=== PATIENT | male | born 1940 | race Caucasian/White ===

== ENCOUNTER → 2016-06-09 | Outpatient (REF) | payer OTHER ==
[~2016-06-09] MED LIST: /TAMS4CA PO; ALEV220C2 PO; ASPI81TA85 PO; CARV25TA PO; CHLO25TA3 PO; CINN500C9 PO; CLOP75TA2 PO; FISH1000 PO; METF500T PO; MULTTAB4 PO; NIASPAN PO; NITR4TASL SL; RAMI10CA PO
[2016-06-09 14:37] LABS: PERCENT SATURATION 17.1 % (19.7-37.4)
== END ==
LOC: M LAB REF 13:25
PROVIDERS: ATTEND Internal Medicine Nephrology
DX: D50.9 Iron deficiency anemia, unspecified (principal)

== ENCOUNTER → 2016-06-21 | Outpatient (CLI) | payer OTHER ==
--- NOTE | 2016-06-21 10:21 | REP ---
Urinary tract sonography: History: Atherosclerosis of the renal artery. Stage III chronic kidney disease. Morphologic findings: Scanning at the level of the urinary bladder shows no abnormality. Renal cortical echogenicity pattern is normal and renal contours are smooth bilaterally. There is some increased renal sinus echogenicity consistent with renal sinus lipomatosis of aging. No mass lesion, cyst, hydronephrosis or calculus is seen on either side. The right kidney measures 12.6 x 6.5 x 5.1 cm. Left renal dimensions are 10.5 x 4.8 x 4.9 cm. Renal artery Doppler flow assessment: Peak systolic flow velocity in the abdominal aorta at the level of the main renal arteries is recorded at 191.7 cm/sec. Peak systolic flow velocity in the left main renal artery is 291.1 cm/sec. The peak systolic flow velocity in the right main renal artery is 238.4 cm/sec. Renal to aortic flow velocity ratios are therefore normal at 1.2 on the right and 1.5 on the left. Resistive indices and acceleration times are measured in the intralobar arteries of the upper, mid and lower pole of each kidney and these values are normal bilaterally. Impression: There is no evidence of hydronephrosis or mass on either side. There is no Doppler evidence to suggest renal artery stenosis. Signed by Johnathan Millan MD 06/21/2016 10:40 A
== END ==
LOC: M RAD 08:17
PROVIDERS: ATTEND Internal Medicine Nephrology
DX: I70.1 Atherosclerosis of renal artery (principal)

== ENCOUNTER → 2016-07-12 | Outpatient (REF) | payer OTHER ==
[2016-07-12 12:44] LABS: MEAN CORPUSCULAR HEMOGLOBIN 30.8 pg (27.0-33.0); MEAN CORPUSCULAR HGB CONC 33.5 g/dl (32.0-36.5); MEAN CORPUSCULAR VOLUME 92.1 fl (80.0-96.0); RED CELL DISTRIBUTION WIDTH 12.7 % (11.5-14.5)
[2016-07-12 13:06] LABS: ALBUMIN 3.6 GM/DL (3.2-5.2); ALBUMIN/GLOBULIN RATIO 0.97 (1.00-1.93); BILIRUBIN,TOTAL 0.2 MG/DL (0.2-1.0); CALCIUM LEVEL 8.7 MG/DL (8.8-10.2); CREATININE FOR GFR 1.62 MG/DL (0.70-1.30); FREE T4 1.02 NG/DL (0.76-1.46); GLOMERULAR FILTRATION RATE 44.3 (>42); POTASSIUM SERUM 4.1 MEQ/L (3.5-5.1); TOTAL PROTEIN 7.3 GM/DL (6.4-8.2)
== END ==
LOC: M SFHCADAM 09:11
PROVIDERS: ATTEND Family Medicine
DX: E11.40 Type 2 diabetes mellitus with diabetic neuropathy, unspecified (principal); G89.29 Other chronic pain

== ENCOUNTER → 2016-10-09 | Outpatient (CLI) | payer OTHER ==
--- NOTE | 2016-10-09 14:04 | REP ---
Clinical: Right groin pain. Technique: Real time bustillo scale ultrasound examination using linear high frequency transducer. Findings: Directed ultrasound examination of the right groin (with left groin for comparison) appears normal and without evidence for inguinal hernia, fluid collection or mass lesion. Impression: Normal ultrasound. No hernia. Signed by Fei Campos MD 10/09/2016 01:55 P
== END ==
LOC: M RAD 13:27
PROVIDERS: ATTEND Physician Assistant
DX: R10.31 Right lower quadrant pain (principal)

== ENCOUNTER → 2016-10-11 | Outpatient (CLI) | payer OTHER ==
--- NOTE | 2016-10-11 09:43 | REP ---
Clinical: Right groin pain. Technique: Neutral and frog lateral views of the right hip. Findings: Age-related degenerative changes include increased sclerosis to the acetabular roof with marginal spurring and joint space narrowing. There is no evidence for acute fracture or dislocation. Postsurgical changes include iliac stent as well as right lower lobe and groin issa. Surrounding soft tissues are grossly unremarkable. Impression: Age-related degenerative changes to the right hip. No obvious acute fracture or dislocation. Signed by Fei Campos MD 10/11/2016 09:34 A
== END ==
LOC: M ADAMS 09:06
PROVIDERS: ATTEND Family Medicine
DX: M16.11 Unilateral primary osteoarthritis, right hip (principal)

== ENCOUNTER → 2016-11-15 | Outpatient (CLI) | payer OTHER ==
[2016-11-15 19:26] LABS: CREATININE FOR GFR 1.99 MG/DL (0.70-1.30); GLOMERULAR FILTRATION RATE 34.9 (>42)
== END ==
LOC: M ADAMS 16:49
PROVIDERS: ATTEND Physician Assistant
DX: I70.512 Atherosclerosis of nonautologous biological bypass graft(s) of the extremities with intermittent claudication, left leg (principal)

== ENCOUNTER → 2016-12-11 | Outpatient (REF) | payer OTHER ==
[2016-12-11 13:19] LABS: BASO % 0.5 % (0.0-1.0); EOS # 0.3 K/mm3 (0.0-0.50); EOS % 4.8 % (0.0-3.0); LARGE UNSTAINED CELL # 0.1 K/mm3 (0.0-0.4); LARGE UNSTAINED CELL % 2.6 % (0.0-4.0); LYMPH # 1.1 K/mm3 (1.5-4.5); LYMPH % 17.6 % (24.0-44.0); MEAN CORPUSCULAR HEMOGLOBIN 32.2 pg (27.0-33.0); MEAN CORPUSCULAR HGB CONC 33.5 g/dl (32.0-36.5); MEAN CORPUSCULAR VOLUME 96.3 fl (80.0-96.0); MONO # 0.5 K/mm3 (0.0-0.8); MONO % 9.4 % (0.0-5.0); NEUTROPHILS # 3.5 K/mm3 (1.8-7.7); PLATELET COUNT, AUTOMATED 187 k/mm3 (150-450); RED CELL DISTRIBUTION WIDTH 13.1 % (11.5-14.5); WHITE BLOOD COUNT 5.4 K/mm3 (4.0-10.0)
[2016-12-11 13:23] LABS: INR 0.97
[2016-12-11 13:46] LABS: CALCIUM LEVEL 8.9 MG/DL (8.8-10.2); CREATININE FOR GFR 1.82 MG/DL (0.70-1.30); GLOMERULAR FILTRATION RATE 38.6 (>42); POTASSIUM SERUM 4.3 MEQ/L (3.5-5.1)
== END ==
LOC: M LABDRWAD 12:28
PROVIDERS: ATTEND Surgery Vascular Surgery
DX: Z01.818 Encounter for other preprocedural examination (principal); I70.213 Atherosclerosis of native arteries of extremities with intermittent claudication, bilateral legs; D69.8 Other specified hemorrhagic conditions

== ENCOUNTER → 2017-03-13 | Outpatient (REF) | payer OTHER ==
[2017-03-13 20:49] LABS: MEAN CORPUSCULAR HEMOGLOBIN 31.5 pg (27.0-33.0); MEAN CORPUSCULAR VOLUME 95.5 fl (80.0-96.0); PLATELET COUNT, AUTOMATED 197 10^3/uL (150-450); RED CELL DISTRIBUTION WIDTH 12.8 % (11.5-14.5); WHITE BLOOD COUNT 6.3 10^3/uL (4.0-10.0)
[2017-03-13 20:54] LABS: ALBUMIN 3.8 GM/DL (3.2-5.2); ALBUMIN/GLOBULIN RATIO 1.06 (1.00-1.93); BILIRUBIN,TOTAL 0.3 MG/DL (0.2-1.0); CREATININE FOR GFR 1.87 MG/DL (0.70-1.30); FREE T4 0.84 NG/DL (0.76-1.46); GLOMERULAR FILTRATION RATE 37.5 (>42); POTASSIUM SERUM 4.6 MEQ/L (3.5-5.1); TOTAL PROTEIN 7.4 GM/DL (6.4-8.2)
== END ==
LOC: M SFHCADAM 14:11
PROVIDERS: ATTEND Physician Assistant
DX: E11.22 Type 2 diabetes mellitus with diabetic chronic kidney disease (principal); E11.40 Type 2 diabetes mellitus with diabetic neuropathy, unspecified; E03.9 Hypothyroidism, unspecified

== ENCOUNTER → 2017-03-19 | Outpatient (REF) | payer OTHER ==
[2017-03-19 14:04] LABS: PERCENT SATURATION 27.3 % (19.7-50.0)
== END ==
LOC: M LAB REF 12:59
PROVIDERS: ATTEND Internal Medicine Nephrology
DX: D50.9 Iron deficiency anemia, unspecified (principal)

== ENCOUNTER → 2017-06-14 | Outpatient (REF) | payer OTHER ==
[2017-06-14 20:51] LABS: BASO % 0.5 % (0.0-1.0); EOS # 0.2 10^3/uL (0.0-0.50); EOS % 2.1 % (0.0-3.0); HEMATOCRIT 31.7 % (42.0-52.0); HEMOGLOBIN 10.4 g/dl (14.0-18.0); IMMATURE GRANULOCYTE % 0.2 % (0-0); LYMPH # 1.4 10^3/uL (1.5-4.5); LYMPH % 16.8 % (24.0-44.0); MEAN CORPUSCULAR HGB CONC 32.8 g/dl (32.0-36.5); MEAN CORPUSCULAR VOLUME 94.3 fl (80.0-96.0); MONO % 12.1 % (0.0-5.0); NEUTROPHILS # 5.5 10^3/uL (1.8-7.7); NEUTROPHILS % 68.3 % (36.0-66.0); PLATELET COUNT, AUTOMATED 244 10^3/uL (150-450); RED BLOOD COUNT 3.36 10^6/uL (4.30-6.10); RED CELL DISTRIBUTION WIDTH 12.5 % (11.5-14.5)
[2017-06-14 21:02] LABS: APPEARANCE, URINE CLEAR (CLEAR); BACTERIA, URINE AUTO NEGATIVE (NEGATIVE); BILIRUBIN, URINE AUTO NEGATIVE (NEGATIVE); BLOOD, URINE BLOOD NEGATIVE (NEGATIVE); COLOR, URINE YELLOW (YELLOW); GLUCOSE, URINE (UA) AUTO NEGATIVE (NEGATIVE); KETONE, URINE AUTO NEGATIVE (NEGATIVE); LEUKOCYTE ESTERASE, URINE AUTO 1+ (NEGATIVE); NITRITE, URINE AUTO NEGATIVE (NEGATIVE); PROTEIN, URINE AUTO 1+ mg/dL (NEGATIVE); RBC, URINE AUTO 0 /HPF (0-3); SPECIFIC GRAVITY URINE AUTO 1.009 (1.002-1.035); SQUAMOUS EPITHELIAL CELL UR AU 0 /HPF (0-6); UROBILINOGEN, URINE AUTO 0.2 mg/dL (0.0-2.0); WBC, URINE AUTO 7 /HPF (0-3)
[2017-06-14 21:22] LABS: ALBUMIN 4.1 GM/DL (3.2-5.2); ALBUMIN/GLOBULIN RATIO 1.21 (1.00-1.93); ALKALINE PHOSPHATASE 100 U/L (45-117); ALT/SGPT 22 U/L (12-78); ANION GAP 6 MEQ/L (8-16); AST/SGOT 23 U/L (7-37); BILIRUBIN,TOTAL 0.2 MG/DL (0.2-1.0); BLOOD UREA NITROGEN 31 MG/DL (7-18); CALCIUM LEVEL 8.6 MG/DL (8.8-10.2); CARBON DIOXIDE LEVEL 28 MEQ/L (21-32); CHLORIDE LEVEL 101 MEQ/L (98-107); CREATININE FOR GFR 1.72 MG/DL (0.70-1.30); FREE T4 0.88 NG/DL (0.76-1.46); GLOMERULAR FILTRATION RATE 41.3 (>42); GLUCOSE, FASTING 122 MG/DL (70-100); POTASSIUM SERUM 4.8 MEQ/L (3.5-5.1); PSA SCREENING 0.56 NG/ML (< 4.0); SODIUM LEVEL 135 MEQ/L (136-145); TOTAL PROTEIN 7.5 GM/DL (6.4-8.2)
== END ==
LOC: M SFHCADAM 14:19
DX: N40.1 Benign prostatic hyperplasia with lower urinary tract symptoms (principal); K59.00 Constipation, unspecified; R30.0 Dysuria; E11.22 Type 2 diabetes mellitus with diabetic chronic kidney disease
CPT/HCPCS: 84443

== ENCOUNTER 2017-08-11 12:41 | Emergency (ER) | payer OTHER ==
[2017-08-11 13:18] LABS: HEMATOCRIT 27.4 % (42.0-52.0); HEMOGLOBIN 9.3 g/dl (14.0-18.0); MEAN CORPUSCULAR HGB CONC 33.9 g/dl (32.0-36.5); MEAN CORPUSCULAR VOLUME 91.3 fl (80.0-96.0); PLATELET COUNT, AUTOMATED 190 10^3/uL (150-450); RED CELL DISTRIBUTION WIDTH 12.4 % (11.5-14.5); WHITE BLOOD COUNT 13.5 10^3/uL (4.0-10.0)
[2017-08-11 13:23] LABS: ADD MANUAL DIFFER YES; DIFF SLIDE NUMBER 135; POSITIVE DIFF POS FLAG; POSITIVE MORPH POS FLAG
[2017-08-11 13:29] LABS: INR 1.09; PROTHROMBIN TIME 14.2 SECONDS (12.4-14.5)
[2017-08-11 13:30] LABS: PARTIAL THROMBOPLASTIN TIME 28.9 SECONDS (26.8-37.9)
[2017-08-11 13:40] LABS: ALBUMIN 3.5 GM/DL (3.2-5.2); ALBUMIN/GLOBULIN RATIO 0.88 (1.00-1.93); ALKALINE PHOSPHATASE 91 U/L (45-117); ALT/SGPT 22 U/L (12-78); ANION GAP 12 MEQ/L (8-16); AST/SGOT 20 U/L (7-37); BILIRUBIN,DIRECT < 0.1 MG/DL (0.0-0.2); BILIRUBIN,TOTAL 0.2 MG/DL (0.2-1.0); BLOOD UREA NITROGEN 40 MG/DL (7-18); CALCIUM LEVEL 8.6 MG/DL (8.8-10.2); CARBON DIOXIDE LEVEL 23 MEQ/L (21-32); CHLORIDE LEVEL 102 MEQ/L (98-107); CPK CREATINE PHOSPHOKINASE 413 U/L (39-308); CREATININE FOR GFR 1.82 MG/DL (0.70-1.30); GLOMERULAR FILTRATION RATE 38.5 (>42); GLUCOSE, FASTING 203 MG/DL (70-100); LIPASE 108 U/L (73-393); POTASSIUM SERUM 4.2 MEQ/L (3.5-5.1); SODIUM LEVEL 137 MEQ/L (136-145); TOTAL PROTEIN 7.5 GM/DL (6.4-8.2); TROPONIN I 0.06 NG/ML (< 0.10)
[2017-08-11 13:41] LABS: CK-MB VALUE MASS 7.9 NG/ML (<3.6); MB/CK RELATIVE INDEX 1.91 (< OR =4)
[2017-08-11 13:50] LABS: LYMPHOCYTES 8 % (16-52); MONOCYTES 2 % (0-8); NEUTROPHILS 90 % (35-75)
[2017-08-11] MEDS: NITROGLYCERIN 0.4 MG SUBL TABLET SL (13:50)
[2017-08-11 13:51] LABS: ANISOCYTOSIS 1+; PLATELET ESTIMATE NORMAL (NORMAL)
[2017-08-11] MEDS: NITROGLYCERIN 2% OINT 1 GM *U/D* PKT TOP (14:19)
[2017-08-11] MEDS: METOPROLOL 5 MG/5 ML VIAL IV (16:42)
[2017-08-11] MEDS: CLOPIDOGREL 300 MG TAB (PLAVIX) PO (16:42)
[2017-08-11] MEDS: HEPARIN DRIP 25,000 UNITS in APPROPRIATE DILUENT 1 EA IV (16:45)
[2017-08-11] MEDS: HEPARIN SOD (PORCINE) 5000 UNITS/ML VIAL IV (16:46)
== END 2017-08-11 17:01 | disposition short-term general hospital (02) ==
LOC: M ED 12:41
DX: I24.9 Acute ischemic heart disease, unspecified (principal); R94.31 Abnormal electrocardiogram [ECG] [EKG]; R91.8 Other nonspecific abnormal finding of lung field; N18.9 Chronic kidney disease, unspecified; I12.9 Hypertensive chronic kidney disease with stage 1 through stage 4 chronic kidney disease, or unspecified chronic kidney disease; I25.10 Atherosclerotic heart disease of native coronary artery without angina pectoris; E11.51 Type 2 diabetes mellitus with diabetic peripheral angiopathy without gangrene; E78.5 Hyperlipidemia, unspecified; I25.2 Old myocardial infarction; M10.9 Gout, unspecified; I73.9 Peripheral vascular disease, unspecified; Z79.01 Long term (current) use of anticoagulants; Z79.82 Long term (current) use of aspirin; Z79.899 Other long term (current) drug therapy; Z88.5 Allergy status to narcotic agent; Z82.49 Family history of ischemic heart disease and other diseases of the circulatory system; Z87.891 Personal history of nicotine dependence; Z98.890 Other specified postprocedural states; Z95.5 Presence of coronary angioplasty implant and graft
CPT/HCPCS: 71046

== ENCOUNTER → 2017-09-07 | Outpatient (REF) | payer OTHER ==
[2017-09-07 17:52] LABS: FERRITIN 125 NG/ML (26-388); IRON (FE) 41 UG/DL (65-175); PERCENT SATURATION 18.7 % (19.7-50.0); TOTAL IRON BINDING CAPACITY 219 UG/DL (250-450)
== END ==
LOC: M LAB REF 17:02
DX: E11.22 Type 2 diabetes mellitus with diabetic chronic kidney disease (principal)
CPT/HCPCS: 83550

== ENCOUNTER → 2017-12-25 | Outpatient (REF) | payer OTHER ==
[2017-12-25 13:15] LABS: FERRITIN 139 NG/ML (26-388); IRON (FE) 63 UG/DL (65-175); TOTAL IRON BINDING CAPACITY 252 UG/DL (250-450)
== END ==
LOC: M LAB REF 12:23
DX: E11.22 Type 2 diabetes mellitus with diabetic chronic kidney disease (principal)
CPT/HCPCS: 83550

== ENCOUNTER → 2018-01-11 | Outpatient (REF) | payer OTHER ==
[2018-01-11 16:13] LABS: BASO % 0.5 % (0.0-1.0); EOS # 0.1 10^3/uL (0.0-0.50); EOS % 1.9 % (0.0-3.0); HEMATOCRIT 27.8 % (42.0-52.0); HEMOGLOBIN 9.3 g/dl (13.5-17.5); IMMATURE GRANULOCYTE % 0.3 % (0-3.0); LYMPH # 1.2 10^3/uL (1.5-4.5); LYMPH % 19.2 % (24.0-44.0); MEAN CORPUSCULAR HEMOGLOBIN 31.2 pg (27.0-33.0); MEAN CORPUSCULAR HGB CONC 33.5 g/dl (32.0-36.5); MEAN CORPUSCULAR VOLUME 93.3 fl (80.0-96.0); MONO # 0.9 10^3/uL (0.0-0.8); MONO % 13.3 % (0.0-5.0); NEUTROPHILS # 4.2 10^3/uL (1.8-7.7); NEUTROPHILS % 64.8 % (36.0-66.0); PLATELET COUNT, AUTOMATED 169 10^3/uL (150-450); RED BLOOD COUNT 2.98 10^6/uL (4.30-6.10); RED CELL DISTRIBUTION WIDTH 13.9 % (11.5-14.5); WHITE BLOOD COUNT 6.5 10^3/uL (4.0-10.0)
[2018-01-11 16:20] LABS: ALBUMIN 3.5 GM/DL (3.2-5.2); ALBUMIN/GLOBULIN RATIO 1.09 (1.00-1.93); ALKALINE PHOSPHATASE 98 U/L (45-117); ALT/SGPT 25 U/L (12-78); ANION GAP 9 MEQ/L (8-16); AST/SGOT 22 U/L (7-37); BILIRUBIN,TOTAL 0.2 MG/DL (0.2-1.0); BLOOD UREA NITROGEN 32 MG/DL (7-18); CALCIUM LEVEL 8.5 MG/DL (8.8-10.2); CARBON DIOXIDE LEVEL 25 MEQ/L (21-32); CHLORIDE LEVEL 108 MEQ/L (98-107); CREATININE FOR GFR 1.82 MG/DL (0.70-1.30); GLOMERULAR FILTRATION RATE 38.5 (>42); GLUCOSE, FASTING 216 MG/DL (70-100); POTASSIUM SERUM 3.9 MEQ/L (3.5-5.1); SODIUM LEVEL 142 MEQ/L (136-145); TOTAL PROTEIN 6.7 GM/DL (6.4-8.2)
== END ==
LOC: M SFHCADAM 13:51
DX: Z01.818 Encounter for other preprocedural examination (principal); H25.12 Age-related nuclear cataract, left eye
CPT/HCPCS: 80053

== ENCOUNTER 2018-02-05 07:08 | Day surgery (SDC) | payer OTHER ==
[2018-02-05] MEDS: CEFUROXIME 1MG/0.1ML INTRACAMERAL INJ As Ordered (06:34)
[~2018-02-05 07:08] MED LIST changes: -/TAMS4CA PO; +ACETAMINOPHEN 325 MG TAB PO; +ACETYLCHOLINE OPHTH SOLN 1% 2ML (MIOCHOL-E) As Ordered; -ALEV220C2 PO; -ASPI81TA85 PO; -CARV25TA PO; -CHLO25TA3 PO; -CINN500C9 PO; -CLOP75TA2 PO; -FISH1000 PO; -METF500T PO; -MULTTAB4 PO; -NIASPAN PO; -NITR4TASL SL; +PHENYLEPHRINE HCL 10 % OPHTH. SOL 5ML OD; -RAMI10CA PO
[2018-02-05] MEDS: PHENYLEPHRINE 2.5% OPHTH SOL 2ML OD (07:49)
[2018-02-05] MEDS: CYCLOPENTOLATE 2% OPHTH SOLN 2ML BTL OD (07:49)
[2018-02-05] MEDS: TROPICAMIDE 1% OPHTH SOLN 2ML OD (07:49)
[2018-02-05] MEDS: OFLOXACIN 0.3 % (OCUFLOX) OPTH SOL 5ML OD (07:50)
[2018-02-05] MEDS: LIDOCAINE 3.5 % 1ML OPHTH TOPICAL GEL OU (07:50)
[2018-02-05 07:51] LABS: BEDSIDE GLUCOSE 157 MG/DL (83-110)
[2018-02-05] MEDS ORDERED: MIDAZOLAM INJ 2 MG/2 ML VIAL (J2250) As Ordered (08:39)
[2018-02-05] MEDS: POVIDONE-IODINE 5% OPHTH PREP SOL 30ML As Ordered (09:15)
[2018-02-05] MEDS: LIDOCAINE 1% SDV 5 ML VIAL As Ordered (09:19)
[2018-02-05] MEDS: HEALON DUET (HEALON 10MG/ML 0.55ML & HEALON ENDOCOAT 30MG/ML 0.85ML) As Ordered (09:23)
[2018-02-05] MEDS: TRIAMCINOLONE PRES FR 40 MG/ML 1ML(TRIESENCE)(OR EYE ONLY)(J3300 PER 1MG) As Ordered (09:24)
[2018-02-05] MEDS: MOXIFLOXACIN IN BSS 0.25MG/0.25ML INTRACAMERAL INJ (OR EYE ONLY)(J2280) As Ordered (09:24)
[2018-02-05] MEDS: BSS with VANC/TOB/EPI for EYE CASES IR (09:25)
[2018-02-05] MEDS ORDERED: TRIMETHOBENZAMIDE 300 MG CAP PO (10:00)
[2018-02-05] MEDS: AcetaZOLAMIDE 500 MG ER CAP PO (10:03)
== END 2018-02-05 10:12 | disposition home or self-care (01) ==
LOC: M SDC 07:08
DX: H25.9 Unspecified age-related cataract (principal); I25.10 Atherosclerotic heart disease of native coronary artery without angina pectoris; I10 Essential (primary) hypertension; E11.9 Type 2 diabetes mellitus without complications; Z79.82 Long term (current) use of aspirin; Z79.02 Long term (current) use of antithrombotics/antiplatelets; I25.2 Old myocardial infarction; E78.5 Hyperlipidemia, unspecified; M10.9 Gout, unspecified; Z87.891 Personal history of nicotine dependence; N40.0 Benign prostatic hyperplasia without lower urinary tract symptoms; G47.30 Sleep apnea, unspecified
CPT/HCPCS: 66984

== ENCOUNTER → 2018-03-15 | Outpatient (REF) | payer OTHER ==
[2018-03-15 12:25] LABS: ESTIMATED AVERAGE GLUCOSE 151 MG/DL (60-110); HEMOGLOBIN A1c 6.9 %
== END ==
LOC: M SFHCADAM 08:53
DX: E11.40 Type 2 diabetes mellitus with diabetic neuropathy, unspecified (principal)
CPT/HCPCS: 83036

== ENCOUNTER → 2018-04-02 | Outpatient (REF) | payer OTHER ==
[2018-04-02 14:27] LABS: FERRITIN 166 NG/ML (26-388); IRON (FE) 75 UG/DL (65-175); PERCENT SATURATION 32.6 % (19.7-50.0); TOTAL IRON BINDING CAPACITY 230 UG/DL (250-450)
== END ==
LOC: M LAB REF 13:24
DX: E11.22 Type 2 diabetes mellitus with diabetic chronic kidney disease (principal); N18.9 Chronic kidney disease, unspecified
CPT/HCPCS: 83550

== ENCOUNTER → 2018-05-06 | Outpatient (REF) | payer OTHER ==
[~2018-05-06] MED LIST changes: +/TAMS4CA PO; -ACETAMINOPHEN 325 MG TAB PO; -ACETYLCHOLINE OPHTH SOLN 1% 2ML (MIOCHOL-E) As Ordered; +ALEV220C2 PO; +AMLO25TA PO; +ASPI81TA85 PO; +ATOR40TA75 PO; +CARV25TA PO; +CHLO25TA PO; +CHLO25TA3 PO; +CINN500C9 PO; +CLOP75TA2 PO; +DOCU100T8 PO; +FERR325T3 PO; +FISH1000 PO; +FLOM0.4C39 PO; +GABA-845 PO; +K-TA10TA2 PO; +LASI20TA PO; +METF500T PO; +MULTCAP PO; +MULTTAB4 PO; +NIASPAN PO; +NITR0.4S14 SL; +NITR4TASL SL; +OXYC1TAB23 PO; -PHENYLEPHRINE HCL 10 % OPHTH. SOL 5ML OD; +PROC1INJ5 INJ; +RAMI10CA PO; +RAMI1CAP22 PO; +RAPA8CAP PO; +TRAD5TAB PO
[2018-05-06 12:47] LABS: HEMATOCRIT 27.7 % (42.0-52.0); HEMOGLOBIN 9.3 g/dl (13.5-17.5); MEAN CORPUSCULAR HEMOGLOBIN 31.2 pg (27.0-33.0); MEAN CORPUSCULAR HGB CONC 33.6 g/dl (32.0-36.5); PLATELET COUNT, AUTOMATED 191 10^3/uL (150-450); RED BLOOD COUNT 2.98 10^6/uL (4.30-6.10); WHITE BLOOD COUNT 6.8 10^3/uL (4.0-10.0)
[2018-05-06 13:23] LABS: ALBUMIN 3.5 GM/DL (3.2-5.2); BILIRUBIN,DIRECT 0.1 MG/DL (0.0-0.2); BILIRUBIN,TOTAL 0.3 MG/DL (0.2-1.0); CHOLESTEROL RISK RATIO 4.155 (<5); TOTAL PROTEIN 6.6 GM/DL (6.4-8.2)
== END ==
LOC: M LABDRWAD 12:22
PROVIDERS: ATTEND Physician Assistant
DX: I25.10 Atherosclerotic heart disease of native coronary artery without angina pectoris (principal); E78.00 Pure hypercholesterolemia, unspecified

== ENCOUNTER → 2018-08-15 | Outpatient (REF) | payer OTHER ==
[~2018-08-15] MED LIST changes: -LASI20TA PO; +LASI20TA3 PO
[2018-08-15 19:46] LABS: CREATININE FOR GFR 1.63 MG/DL (0.70-1.30); GLOMERULAR FILTRATION RATE 43.7 (>42)
== END ==
LOC: M LABDRWAD 19:08
PROVIDERS: ATTEND Surgery Vascular Surgery
DX: I65.23 Occlusion and stenosis of bilateral carotid arteries (principal)

== ENCOUNTER → 2018-09-11 | Outpatient (REF) | payer MEDICARE ==
[~2018-09-11] MED LIST changes: -/TAMS4CA PO; +HEMP PO; -RAPA8CAP PO; +RAPA8CAP4 PO
[2018-09-11 13:45] LABS: CALCIUM LEVEL 8.7 MG/DL (8.8-10.2); CREATININE FOR GFR 1.59 MG/DL (0.70-1.30); GLOMERULAR FILTRATION RATE 44.9 (>42)
[2018-09-11 13:47] LABS: BASO % 0.4 % (0.0-1.0); EOS # 0.2 10^3/uL (0.0-0.50); EOS % 2.2 % (0.0-3.0); HEMATOCRIT 29.3 % (42.0-52.0); HEMOGLOBIN 9.6 g/dl (13.5-17.5); LYMPH # 1.3 10^3/uL (1.5-4.5); LYMPH % 18.5 % (24.0-44.0); MEAN CORPUSCULAR HEMOGLOBIN 30.5 pg (27.0-33.0); MEAN CORPUSCULAR HGB CONC 32.8 g/dl (32.0-36.5); MONO # 1.1 10^3/uL (0.0-0.8); MONO % 16.3 % (0.0-5.0); NEUTROPHILS # 4.3 10^3/uL (1.8-7.7); NEUTROPHILS % 62.2 % (36.0-66.0); PLATELET COUNT, AUTOMATED 203 10^3/uL (150-450); RED BLOOD COUNT 3.15 10^6/uL (4.30-6.10); WHITE BLOOD COUNT 6.9 10^3/uL (4.0-10.0)
[2018-09-11 14:16] LABS: PARTIAL THROMBOPLASTIN TIME 31.5 SECONDS (25.4-37.6)
[2018-09-11 14:24] LABS: INR 1.02; PROTHROMBIN TIME 13.5 SECONDS (12.1-14.4)
== END ==
LOC: M LABDRWAD 12:25
PROVIDERS: ATTEND Surgery Vascular Surgery
DX: I70.213 Atherosclerosis of native arteries of extremities with intermittent claudication, bilateral legs (principal); D69.8 Other specified hemorrhagic conditions; Z01.818 Encounter for other preprocedural examination

== ENCOUNTER → 2018-11-06 | Outpatient (REF) | payer MEDICARE ==
[2018-11-06 13:12] LABS: ALBUMIN 3.3 GM/DL (3.2-5.2); ALT/SGPT 30 U/L (12-78); BILIRUBIN,DIRECT < 0.1 MG/DL (0.0-0.2); BILIRUBIN,TOTAL 0.3 MG/DL (0.2-1.0); CHOLESTEROL LEVEL 132 MG/DL (<200); CHOLESTEROL RISK RATIO 3.567 (<5); HDL CHOLESTEROL 37 MG/DL (>40); LDL CHOLESTEROL 65 MG/DL (<100); NON-HDL-C 95 MG/DL; TOTAL PROTEIN 6.4 GM/DL (6.4-8.2); TRIGLYCERIDES LEVEL 148 MG/DL (<150)
== END ==
LOC: M LABDRWAD 12:19
PROVIDERS: ATTEND Physician Assistant
DX: E78.00 Pure hypercholesterolemia, unspecified (principal); I25.10 Atherosclerotic heart disease of native coronary artery without angina pectoris

== ENCOUNTER → 2019-01-30 | Outpatient (CLI) | payer MEDICARE ==
--- NOTE | 2019-01-30 14:37 | REP ---
MRI of the lumbar spine without contrast Indication: Other intervertebral disc degeneration, lumbar region. Comparison: None Technique: MRI of the lumbar spine was performed utilizing sagittal STIR, T1 and T2, and axial T1 and T2 weighted imaging. No intravenous contrast was administered. Findings: There is one - 2 mm retrolisthesis L3 on L4 and L4 on L5. There is multilevel degenerative changes within the lumbar spine including loss of disc height and endplate irregularity. There is compression deformity along the superior endplate of L5 posteriorly without significant loss of height. There is focal marrow edema along the superior endplates of L2, L3 and L5, likely related to Schmorl's node deformities. There are fatty marrow degenerative changes at L3-L4. Remaining vertebral body heights are maintained. The visualized spinal cord is normal. The conus medullaris terminates at the level of L1. Note is made of all large bridging anterior osteophytes. Note is made of a left-sided synovial cyst within the paraspinal soft tissues at L5-S1. Level specific observations: L1-L2: Diffuse disc bulge, eccentric to the left. L2-L3: Diffuse disc bulge. L3-L4: Diffuse disc bulge with superimposed central disc protrusion. Bilateral facet arthropathy. Ligamentum flavum thickening. Moderate narrowing of the spinal canal. Moderate left and mild right neural foraminal narrowing. L4-L5: Diffuse disc osteophyte complex with superimposed left paracentral disc protrusion. Advanced bilateral facet hypertrophy. Ligamentum flavum thickening. Severe narrowing of the spinal canal. Moderate bilateral neural foraminal narrowing. L5-S1: Bilateral facet arthropathy, severe on the left. T2 hyperintensity within the left paraspinal soft tissues adjacent to the joint consistent with synovial cyst. Moderate bilateral neural foraminal narrowing. Impression: One - 2 mm retrolisthesis of L3 on L4 and L4 on L5. Multilevel lumbar spondylosis with severe spinal canal stenosis at L4-L5 and moderate canal stenosis at L3-L4. Additionally, there is moderate bilateral neural foraminal narrowing at L3-L4, L4-L5, and L5-S1. Electronically Signed by Pierre Chen MD 01/30/2019 02:28 P
== END ==
LOC: M RAD 12:08
PROVIDERS: ATTEND Physician Assistant
DX: M51.26 Other intervertebral disc displacement, lumbar region (principal); M47.816 Spondylosis without myelopathy or radiculopathy, lumbar region; M48.061 Spinal stenosis, lumbar region without neurogenic claudication

== ENCOUNTER → 2019-02-11 | Outpatient (REF) | payer MEDICARE ==
[2019-02-11 19:22] LABS: ALBUMIN 3.6 GM/DL (3.2-5.2); BILIRUBIN,TOTAL 0.3 MG/DL (0.2-1.0); CALCIUM LEVEL 8.8 MG/DL (8.8-10.2); CREATININE FOR GFR 1.63 MG/DL (0.70-1.30); FREE T4 0.97 NG/DL (0.76-1.46); GLOMERULAR FILTRATION RATE 43.7 (>42); POTASSIUM SERUM 4.5 MEQ/L (3.5-5.1); THYROID STIMULATING HORMONE 3.15 uIU/ML (0.358-3.740); TOTAL PROTEIN 6.7 GM/DL (6.4-8.2)
[2019-02-11 19:24] LABS: HEMOGLOBIN A1c 6.2 %
== END ==
LOC: M SFHCADAM 13:48
PROVIDERS: ATTEND Physician Assistant
DX: E03.9 Hypothyroidism, unspecified (principal); E11.40 Type 2 diabetes mellitus with diabetic neuropathy, unspecified; N64.4 Mastodynia
CPT/HCPCS: 80053; 83036; 84439; 84443; G0463

== ENCOUNTER → 2019-02-18 | Outpatient (CLI) | payer MEDICARE ==
--- NOTE | 2019-02-18 12:04 | REP ---
BILATERAL MAMMOGRAM: HISTORY: Pain left nipple. MLO and CC views of both breasts performed. There is ill-defined fibroglandular tissue in the retroareolar regions bilaterally, left greater than right. There is no mass or architectural distortion. No clustered microcalcifications are seen. IMPRESSION: ACR 2 Benign. Findings consistent with bilateral gynecomastia left greater than right. No suspicious mass or clustered microcalcifications. Clinical correlation and followup recommended. This mammogram was interpreted with the aid of an FDA-approved computer-aided detection system. The patient states he/she had a clinical breast exam in 01/2019. The patient letter being requested is M2. Electronically Signed by Clement De Guzman MD 02/19/2019 04:08 P
== END ==
LOC: M RAD 10:25
PROVIDERS: ATTEND Physician Assistant
DX: N64.4 Mastodynia (principal); N62 Hypertrophy of breast

== ENCOUNTER 2019-05-17 20:37 | Emergency (ER) | payer MEDICARE ==
[~2019-05-17] VITALS: Ht 165.1 cm; Wt 89.2 kg
[2019-05-17] MEDS ORDERED: FURO20TA2 PO (21:04)
[2019-05-17 21:08] LABS: BASO % 0.3 % (0.0-1.0); EOS # 0.1 10^3/uL (0.0-0.5); EOS % 1.4 % (0.0-3.0); HEMATOCRIT 27.7 % (42.0-52.0); HEMOGLOBIN 8.9 g/dl (13.5-17.5); LYMPH % 14.2 % (24.0-44.0); MEAN CORPUSCULAR HEMOGLOBIN 30.8 pg (27.0-33.0); MEAN CORPUSCULAR HGB CONC 32.1 g/dl (32.0-36.5); MEAN CORPUSCULAR VOLUME 95.8 fl (80.0-96.0); MONO # 0.7 10^3/uL (0.0-0.8); MONO % 10.1 % (0.0-5.0); NEUTROPHILS # 5.4 10^3/uL (1.5-8.5); NEUTROPHILS % 73.6 % (36.0-66.0); PLATELET COUNT, AUTOMATED 176 10^3/uL (150-450); RED BLOOD COUNT 2.89 10^6/uL (4.30-6.10); WHITE BLOOD COUNT 7.3 10^3/uL (4.0-10.0)
[2019-05-17] MEDS ORDERED: GI COCKTAIL 50ML BTL(HYOSCYAMINE/MAALOX/LIDOCAINE VISCOUS)(1:3:1) PO ONE (21:30)
[2019-05-17 21:36] LABS: CALCIUM LEVEL 8.6 MG/DL (8.8-10.2); CK-MB VALUE MASS 10.5 NG/ML (<3.6); CREATININE FOR GFR 1.71 MG/DL (0.70-1.30); GLOMERULAR FILTRATION RATE 41.3 (>42); MB/CK RELATIVE INDEX 3.6 (< OR =4); TROPONIN I 0.19 NG/ML (< 0.10)
[2019-05-17] MEDS ORDERED: FUROSEMIDE 40 MG/4 ML VIAL (J1940) IV ONE (22:15)
[2019-05-17] MEDS ORDERED: fentaNYL 100 MCG/2 ML INJECTION (J3010) IV ONE (22:15)
[2019-05-18 00:16] LABS: CK-MB VALUE MASS 11.7 NG/ML (<3.6); MB/CK RELATIVE INDEX 3.87 (< OR =4); TROPONIN I 0.83 NG/ML (< 0.10)
[2019-05-18] MEDS ORDERED: HEPARIN DRIP 25,000 UNITS in IV 1 EA IV SCH (00:24)
[2019-05-18] MEDS ORDERED: HEPARIN SOD (PORCINE) 5000 UNITS/ML VIAL IV ONE (00:30)
[2019-05-18] MEDS ORDERED: fentaNYL 100 MCG/2 ML INJECTION (J3010) IV ONE (00:30)
[2019-05-18] MEDS ORDERED: CLOPIDOGREL 300 MG TAB (PLAVIX) PO STA (00:31)
[2019-05-18 00:37] LABS: INR 1.12; PROTHROMBIN TIME 14.1 SECONDS (11.8-14.0)
[2019-05-18 00:38] LABS: PARTIAL THROMBOPLASTIN TIME 32.4 SECONDS (25.0-38.4)
[2019-05-18 01:58] VITALS: BP 110/66
--- NOTE | 2019-05-18 07:41 | REP ---
Clinical: Chest pain . Comparison: 08/11/2017 . Findings: Stable cardiomegaly and diffuse chronic interstitial changes are appreciated. Superimposed interstitial edema cannot be excluded. No focal consolidation. No obvious effusion. No pneumothorax. Skeletal structures are intact. Impression: Cardiomegaly and chronic interstitial changes. Cannot exclude interstitial edema. Electronically Signed by Fei Campos MD 05/18/2019 07:32 A
--- NOTE | 2019-05-18 15:43 | ECGEPIP ---
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
--- NOTE | 2019-05-18 15:45 | ECGEPIP ---
[facility] - ED Test Date: 2019-05-17 Pat Name: ESDRAS MURILLO Department: Room: - Gender: Male [employer] Supervisor: KCJ : 1940 Requested By: RANDA Olsen Order Number: [id number] Reading MD: Cornelio Michael Measurements Intervals [place] Rate: 94 P: 49 [place]: 169 QRS: 68 QRSD: 113 T: 14 QT: 361 QTc: 452 Interpretive Statements SINUS RHYTHM POSSIBLE LEFT ATRIAL ENLARGEMENT POSSIBLE INFERIOR MYOCARDIAL INFARCTION, OF INDETERMINATE AGE NSTTW ABNORMALITIES SIMILAR TO PRIOR ON SAME DATE Electronically Signed on 05-18-2019 15:45:21 EST by Cornelio Michael
== END 2019-05-18 02:01 | disposition short-term general hospital (02) ==
LOC: M ED 20:37
DX: I24.9 Acute ischemic heart disease, unspecified (principal); R00.0 Tachycardia, unspecified; I25.10 Atherosclerotic heart disease of native coronary artery without angina pectoris; E11.9 Type 2 diabetes mellitus without complications; I10 Essential (primary) hypertension; N18.9 Chronic kidney disease, unspecified; Z95.5 Presence of coronary angioplasty implant and graft; Z87.891 Personal history of nicotine dependence; Z82.49 Family history of ischemic heart disease and other diseases of the circulatory system; I51.7 Cardiomegaly; Z79.82 Long term (current) use of aspirin; Z79.899 Other long term (current) drug therapy; Z88.5 Allergy status to narcotic agent
CPT/HCPCS: 51702; 71045; 80048; 82550; 82553; 83880; 84484; 85025; 85610; 85730; 93005; 93041; 94760; 96374; 96375; 96376; 99285; J1940; J3010

== ENCOUNTER → 2019-05-29 | Outpatient (REF) | payer MEDICARE ==
[~2019-05-29] MED LIST changes: +FURO20TA2 PO
[2019-05-29 16:00] LABS: HEMATOCRIT 27.9 % (42.0-52.0); HEMOGLOBIN 8.8 g/dl (13.5-17.5); MEAN CORPUSCULAR HEMOGLOBIN 30.1 pg (27.0-33.0); MEAN CORPUSCULAR HGB CONC 31.5 g/dl (32.0-36.5); MEAN CORPUSCULAR VOLUME 95.5 fl (80.0-96.0); PLATELET COUNT, AUTOMATED 213 10^3/uL (150-450); RED BLOOD COUNT 2.92 10^6/uL (4.30-6.10); WHITE BLOOD COUNT 6.6 10^3/uL (4.0-10.0)
[2019-05-29 16:26] LABS: ALBUMIN 3.4 GM/DL (3.2-5.2); BILIRUBIN,TOTAL 0.4 MG/DL (0.2-1.0); CALCIUM LEVEL 8.8 MG/DL (8.8-10.2); CREATININE FOR GFR 1.81 MG/DL (0.70-1.30); GLOMERULAR FILTRATION RATE 38.7 (>42); TOTAL PROTEIN 6.7 GM/DL (6.4-8.2)
== END ==
LOC: M SFHCADAM 14:17
PROVIDERS: ATTEND Physician Assistant
DX: E11.22 Type 2 diabetes mellitus with diabetic chronic kidney disease (principal); D63.1 Anemia in chronic kidney disease; I25.118 Atherosclerotic heart disease of native coronary artery with other forms of angina pectoris; R60.0 Localized edema

== ENCOUNTER → 2019-06-06 | Outpatient (REF) | payer MEDICARE ==
[2019-06-09 13:46] LABS: PERCENT SATURATION 14.7 % (19.7-50.0)
== END ==
LOC: M LAB REF 12:48
PROVIDERS: ATTEND Nurse Practitioner Family
DX: D50.9 Iron deficiency anemia, unspecified (principal)

== ENCOUNTER 2019-07-04 11:28 | Outpatient (CLI) | payer MEDICARE ==
[~2019-07-04] VITALS: Ht 162.6 cm; Wt 86.3 kg
[2019-07-04 11:45] VITALS: BP 144/64
[2019-07-04] MEDS ORDERED: diphenhydrAMINE INJ 50MG/ML VIAL (J1200) IV PRN (11:45)
[2019-07-04] MEDS ORDERED: FERRIC CARBOXYMALTOSE INJ 750 MG in NS 250 ML IV ONE (11:45)
[2019-07-04] MEDS ORDERED: methylPREDNISolone INJ 125 MG/2 ML VIAL (J2930) IV PRN (11:45)
[2019-07-04] MEDS ORDERED: NS 1,000 ML IV SCH (11:45)
[2019-07-04] MEDS ORDERED: EPINEPHrine INJ 1 MG/ML 1ML VIAL IM PRN (11:45)
[2019-07-04] MEDS ORDERED: ALBUTEROL SULFATE 2.5 MG/0.5 ML INH NEB SOLN INH PRN (11:45)
[2019-07-04 12:30] VITALS: BP 98/55
[2019-07-04 13:30] VITALS: BP 107/57
[2019-07-04 14:30] VITALS: BP 111/55
[2019-07-04 14:50] VITALS: BP 106/56
== END 2019-07-04 14:50 | disposition home or self-care (01) ==
LOC: M INFU 11:28
PROVIDERS: ATTEND Internal Medicine Nephrology
DX: D50.9 Iron deficiency anemia, unspecified (principal); Z88.5 Allergy status to narcotic agent
CPT/HCPCS: 96365; 96366; J1439

== ENCOUNTER 2019-07-11 11:37 | Outpatient (CLI) | payer MEDICARE ==
[~2019-07-11] VITALS: Ht 167.6 cm; Wt 86.3 kg
[2019-07-11] MEDS ORDERED: methylPREDNISolone INJ 125 MG/2 ML VIAL (J2930) IV PRN (12:00)
[2019-07-11] MEDS ORDERED: ALBUTEROL SULFATE 2.5 MG/0.5 ML INH NEB SOLN INH PRN (12:00)
[2019-07-11] MEDS ORDERED: EPINEPHrine INJ 1 MG/ML 1ML VIAL IM PRN (12:00)
[2019-07-11] MEDS ORDERED: diphenhydrAMINE INJ 50MG/ML VIAL (J1200) IV PRN (12:00)
[2019-07-11 12:18] VITALS: BP 120/60
[2019-07-11] MEDS ORDERED: FERRIC CARBOXYMALTOSE INJ 750 MG in NS 250 ML IV ONE (12:30)
[2019-07-11 13:24] VITALS: BP 139/65
== END 2019-07-11 13:25 | disposition home or self-care (01) ==
LOC: M INFU 11:37
PROVIDERS: ATTEND Internal Medicine Nephrology
DX: D50.9 Iron deficiency anemia, unspecified (principal); Z88.5 Allergy status to narcotic agent
CPT/HCPCS: 96365; J1439

== ENCOUNTER → 2019-08-29 | Outpatient (CLI) | payer MEDICARE ==
--- NOTE | 2019-08-29 09:44 | REP ---
Left lower extremity Duplex Doppler venous ultrasound: Real time compression and duplex Doppler interrogation of the left lower extremity deep venous system is performed. The left common femoral, superficial femoral and popliteal veins are fully compressible with transducer pressure and demonstrate normal spontaneous and phasic flow, without evidence of deep venous thrombosis. Impression: No evidence of deep venous thrombosis of the left lower extremity femoral popliteal venous system. Electronically Signed by Clement De Guzman MD 08/29/2019 09:30 A
== END ==
LOC: M RAD 09:04
PROVIDERS: ATTEND Physician Assistant
DX: M79.89 Other specified soft tissue disorders (principal)
CPT/HCPCS: 93971; G0463

== ENCOUNTER → 2019-09-01 | Outpatient (REF) | payer MEDICARE ==
[2019-09-01 13:37] LABS: HEMOGLOBIN A1c 6.7 %
[2019-09-01 13:50] LABS: CHOLESTEROL RISK RATIO 2.653 (<5); FREE T4 1.14 NG/DL (0.76-1.46); THYROID STIMULATING HORMONE 4.5 uIU/ML (0.358-3.740)
[2019-09-03 12:06] LABS: ALBUMIN 3.2 GM/DL (3.2-5.2); BILIRUBIN,TOTAL 0.6 MG/DL (0.2-1.0); CALCIUM LEVEL 8.4 MG/DL (8.8-10.2); CREATININE FOR GFR 2.53 MG/DL (0.70-1.30); GLOMERULAR FILTRATION RATE 26.2 (>35); MAGNESIUM LEVEL 2.7 MG/DL (1.8-2.4); TOTAL PROTEIN 6.7 GM/DL (6.4-8.2)
== END ==
LOC: M SFHCADAM 08:46
PROVIDERS: ATTEND Physician Assistant
DX: E11.40 Type 2 diabetes mellitus with diabetic neuropathy, unspecified (principal); I25.2 Old myocardial infarction

== ENCOUNTER → 2019-09-10 | Outpatient (REF) | payer MEDICARE ==
[2019-09-10 13:06] LABS: ALBUMIN 3.2 GM/DL (3.2-5.2); BILIRUBIN,TOTAL 0.5 MG/DL (0.2-1.0); CALCIUM LEVEL 9.2 MG/DL (8.8-10.2); CREATININE FOR GFR 2.68 MG/DL (0.70-1.30); GLOMERULAR FILTRATION RATE 24.5 (>35); MAGNESIUM LEVEL 2.6 MG/DL (1.8-2.4); POTASSIUM SERUM 3.9 MEQ/L (3.5-5.1)
== END ==
LOC: M SFHCADAM 10:05
PROVIDERS: ATTEND Physician Assistant
DX: R25.2 Cramp and spasm (principal)

== ENCOUNTER → 2019-09-11 | Outpatient (CLI) | payer MEDICARE ==
--- NOTE | 2019-09-11 20:08 | ECHO ---
DATE OF PROCEDURE: 09/11/2019 Date of : 1940 Age: 79 Gender: Male Height: 65 inches Weight: 180 pounds Body surface area: 1.89 meters squared Outpatient REFERRING PROVIDER: Rocio Rodriguez INDICATION: Edema. MEASUREMENTS: 2D Measurements: RV: 3.6 cm LV: 4.5 cm Septum: 1.2 cm Posterior wall: 1.2 cm Aortic root: 3.9 cm LA: 4.2 cm LVEF: 60% Doppler Measurements: AV: 1.05 meters per second LVOT: 0.91 meters per second LVOT diameter: 2.0 cm MV-E: 89, A: 129, EA ratio: 0.7 Early mitral deceleration time: 289 milliseconds E prime medial: 4.1, A prime medial: 7.3, E prime lateral: 4.8. Average E/E prime ratio: 20/PCWP: 26.7 mmHg PV: 0.9 meters per second Pulmonary artery acceleration time: 113 milliseconds RVSP: 31 mmHg IVC: 1.0 cm COMMENTS: Normal sinus rhythm without intraventricular conduction disturbance. M-mode and two-dimensional echocardiography was performed with pulsed, continuous wave, color flow and tissue Doppler studies. Borderline concentric left ventricular hypertrophy with localized proximal inferior akinesis yet preserved global resting systolic function. Mildly dilated left atrium with grade 1 LV diastolic dysfunction and currently elevated estimated mean left atrial pressure. Normal right heart chamber sizes and motion with current Doppler evidence of borderline pulmonary hypertension. Normal inferior vena cava (IVC) size and collapse against an elevated central venous pressure. Normal aortic dimensions. Mild aortic valvular sclerosis without stenosis and only trace insufficiency. Moderately severe mitral annular calcification with some limitation of the posterior leaflet excursion but normal anterior leaflet excursion without inflow tract obstruction and only trace to very mild mitral insufficiency. Normal appearing tricuspid valve with very mild insufficiency. No apparent intracardiac mass or pericardial effusion.
== END ==
LOC: M CARPUL 07:59
PROVIDERS: ATTEND Physician Assistant
DX: R60.0 Localized edema (principal)
CPT/HCPCS: 93306; G0463

== ENCOUNTER → 2019-10-02 | Outpatient (REF) | payer MEDICARE ==
[2019-10-02 20:13] LABS: PERCENT SATURATION 36.6 % (19.7-50.0)
== END ==
LOC: M LAB REF 16:47
PROVIDERS: ATTEND Nurse Practitioner Family
DX: D50.9 Iron deficiency anemia, unspecified (principal)